=== PATIENT | female | born 1960 | race African-American/Black ===

== ENCOUNTER 2023-07-13 10:52 | Outpatient (CLI) | payer BC, SELFPAY ==
--- NOTE | ~2023-07-13 | US_ITS ---
EXAMINATION: US thyroid DATE: 07/13/2023 11:19 INDICATION: Thyromegaly. TECHNIQUE: Multiple ultrasound images of the thyroid were obtained. COMPARISON: None. FINDINGS: The right thyroid lobe measures 3.2 x 1.8 x 1.5 cm. The left thyroid lobe measures 4.2 x 1.4 x 1.6 c m. In the left thyroid lobe, there is a 19 mm predominantly solid, isoechoic, wider than tall nodule with ill-defined margin without echogenic foci (TI-RADS TR3). IMPRESSION: 1. Left thyroid nodule. Thyroid ultrasound is recommended in one year. Reviewed, dictated and finalized at location A.
--- NOTE | ~2023-07-13 | XR_ITS ---
XR shoulder LT min 2V 07/13/2023 11:31 Indication: Left shoulder pain Procedure: 5 views left shoulder Comparison: No prior studies for comparison. Findings: Mild polyarticular osteoarthritis of the left shoulder. No fracture, subluxation or disloca tion. No soft tissue abnormality. No foreign bodies. Impression: 1: Mild polyarticular osteoarthritis of the left shoulder. Reviewed, dictated and finalized at location B. Impression: 1: Mild polyarticular osteoarthritis of the left shoulder.
== END 2023-07-13 10:53 ==
DX: E01.0 Iodine-deficiency related diffuse (endemic) goiter (principal); M25.512 Pain in left shoulder; M15.9 Polyosteoarthritis, unspecified
CPT/HCPCS: 73030; 76536